=== PATIENT | female | born 2000 | race Caucasian/White ===

== ENCOUNTER 2019-10-15 09:40 | Day surgery (SDC) | payer BC ==
[2019-10-14 12:27] VITALS: BMI 23.6
[2019-10-15 12:11] VITALS: TEMP 97.9
[2019-10-15 12:12] VITALS: BP 100/60; PULSE 70
--- NOTE | 2019-10-19 17:31 | PATH ---
Surgical Pathology Report Patient Name: ANASTASIYA OCAMPO [facility]. Rec. #: [id number] /Age/Gender: 2000 (Age: 19) / F Account: [id number] Location: U-ENDOSCOPY Taken: 10/15/2019 Received: 10/15/2019 Reported: 10/19/2019 Physicians: NATALIIA SOTO Specimen(s) Received A: DUODENUM B: STOMACH C: ESOPHAGUS Clinical History Epigastric pain, rectal bleeding Postoperative diagnosis: Dyspepsia, hemorrhoids Final Diagnosis A. Duodenum, biopsy: Duodenal mucosa withOUT SIGNIFICANT PATHOLOGIC findings. B. Stomach, biopsy: Gastric mucosa with MILD chronic gastritis. Immunohistochemical STAIN FOR H. Pylori is negative. C. Esophagus, biopsy: GASTRIC CARDIAC TYPE MUCOSA WITH MILD CHRONIC GASTRITIS. NO INTESTINAL METAPLASIA, DYSPLASIA, OR SQUAMOUS MUCOSA IDENTIFIED. Immunohistochemical STAIN FOR H. Pylori is negative. Immunohistochemical stains performed at [place], [place] ([id number]) and interpreted at [facility]. Positive and negative controls (internal if applicable) show appropriate results. Electronically Signed Elba Roa M.D. Gross Description A. Received in formalin, labeled "duodenum" are 2 parsons, irregular portions of soft tissue measuring 0.3 and 0.4 cm. in greatest dimension. The specimens are submitted in toto in one cassette. B. Received in formalin, labeled "stomach" are 2 parsons, irregular portions of soft tissue measuring 0.1 and 0.5 cm. in greatest dimension. The specimens are submitted in toto in one cassette. C. Received in formalin, labeled "biopsy esophagus" is a parsons, irregular portion of soft tissue measuring 0.3 cm. in greatest dimension. The specimen is submitted in toto in one cassette. DL/10/15/2019 saudi10/15/2019
== END 2019-10-15 11:45 | disposition home or self-care (01) ==
LOC: JASU-ENDO 09:40
PROVIDERS: ATTEND Internal Medicine Gastroenterology
PROC: 0DB98ZX Excision of Duodenum, Via Natural or Artificial Opening Endoscopic, Diagnostic (ICD-10-PCS; 2019-10-15)
PROC: 0DB68ZX Excision of Stomach, Via Natural or Artificial Opening Endoscopic, Diagnostic (ICD-10-PCS; 2019-10-15)
PROC: 0DB48ZX Excision of Esophagogastric Junction, Via Natural or Artificial Opening Endoscopic, Diagnostic (ICD-10-PCS; 2019-10-15)
PROC: 0DJD8ZZ Inspection of Lower Intestinal Tract, Via Natural or Artificial Opening Endoscopic (ICD-10-PCS; principal; 2019-10-15 10:00)
DX: K92.1 Melena (principal); K29.50 Unspecified chronic gastritis without bleeding; R10.13 Epigastric pain; K64.8 Other hemorrhoids
CPT/HCPCS: 81025; 88305-TC

== ENCOUNTER 2022-10-09 17:34 | Emergency (ER) | payer BC ==
[2022-10-09 17:59] VITALS: BP 124/87; PULSE 89; RESP 18; TEMP 98.2; BMI 28.8
[2022-10-09] MEDS ORDERED: ACETAMINOPHEN 1000 MG/100 ML BAG IVPB ONE (18:35)
[2022-10-09] MEDS ORDERED: SODIUM CHLORIDE 0.9% 500 ML INFUS.BAG IV ONE (18:35)
[2022-10-09] MEDS ORDERED: METOCLOPRAMIDE HCL INJECTION 10 MG/2 ML VIAL IVPUSH ONE (18:41)
[2022-10-09] MEDS ORDERED: ACETAMINOPHEN INJECTION 100 ML IVPB ONE (19:04)
[2022-10-09] MEDS ORDERED: METOCLOPRAMIDE HCL INJECTION 10 MG/2 ML VIAL ONE (19:04)
[2022-10-09 20:26] LABS: BASO % 0.4 % (0-2.0); EOS % 2.6 % (0-4.5); HEMATOCRIT 40.8 % (32.4-45.2); HEMOGLOBIN 14.1 GM/dL (10.7-15.3); LYMPH % 31.9 % (8-40); MCH 32.3 pg (25.7-33.7); MCHC 34.5 g/dl (32.0-36.0); MEAN CELL VOLUME 93.5 fl (80-96); MONO % 8.1 % (3.8-10.2); PLATELET COUNT 192 10^3/uL (134-434); RBC 4.37 M/mm3 (3.60-5.2); RDW 12.8 % (11.6-15.6); WHITE BLOOD COUNT 8.9 K/mm3 (4.0-10.0)
[2022-10-09 20:32] LABS: EPI CELLS >36 /uL (0-25.1); HYALINE CASTS 0 /uL (0-3.1); URINE APPEARANCE CLEAR; URINE BACTERIA 237 /uL (0-1359); URINE BILIRUBIN NEGATIVE (NEGATIVE); URINE COLOR YELLOW; URINE GLUCOSE (UA) NEGATIVE (NEGATIVE); URINE KETONE NEGATIVE (NEGATIVE); URINE LEUK ESTERASE 1+ (NEGATIVE); URINE NITRITE NEGATIVE (NEGATIVE); URINE PROTEIN NEGATIVE (NEGATIVE); URINE RBC 16 /uL (0-23.9); URINE WBC 29 /uL (0-25.8)
[2022-10-09 20:33] LABS: HCG,QUALITATIVE URINE Negative
[2022-10-09 20:35] LABS: INR 1.06 (0.83-1.09); PROTHROMBIN TIME (PATIENT) 12.3 SEC (9.7-13.0)
[2022-10-09 20:38] LABS: ACTIVATED PTT 32.1 SECONDS (25.2-36.5)
[2022-10-09 20:50] LABS: ALBUMIN 3.9 g/dl (3.4-5.0); BLOOD UREA NITROGEN 18.9 mg/dL (7-18); CALCIUM 9.4 mg/dL (8.5-10.1)
[2022-10-09 20:53] LABS: CREATININE 0.9 mg/dL (0.55-1.3)
[2022-10-09 20:55] LABS: BILIRUBIN,TOTAL 0.6 mg/dL (0.2-1); TOT PROT 8.2 g/dl (6.4-8.2)
== END 2022-10-09 21:38 | disposition home or self-care (01) ==
LOC: JER 17:34
PROC: 3E0333Z Introduction of Anti-inflammatory into Peripheral Vein, Percutaneous Approach (ICD-10-PCS; principal; 2022-10-09)
PROC: 3E033GC Introduction of Other Therapeutic Substance into Peripheral Vein, Percutaneous Approach (ICD-10-PCS; 2022-10-09)
DX: R51.9 Headache, unspecified (principal)
CPT/HCPCS: 36415; 70450-TC; 80053; 81003; 84703; 85025; 85610; 85730; 86850; 86900; 86901; 87086; 99284-25